=== PATIENT | female | born 2000 | race Caucasian/White ===

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

== ENCOUNTER 2018-04-21 19:41 | Emergency (ER) | payer MEDICAID, OTHER ==
[2018-04-21 19:47] VITALS: BP 100/65
[2018-04-21 20:22] LABS: HCG Qualitative,Urine Negative (Negative)
[2018-04-21 20:26] LABS: Bacteria,Urine 1+ /HPF (Negative); Bilirubin,Urine NEG (Negative); Blood,Urine NEG (Negative); Color,Urine Yellow (Yellow); Mucus,Urine 1+ /HPF; Protein,Urine <15 mg/dL mg/dL (Negative)
--- NOTE | 2018-04-21 20:40 | Emergency Department Report ---
ED Female HPI - General Chief complaint: Urogenital-Female Stated complaint: VAGINAL PAIN Time Seen by Provider: 04/21/18 20:14 Source: patient Mode of arrival: Ambulatory Limitations: No Limitations - History of Present Illness Initial comments: This is a 17-year-old female presents to ED complaining of vaginal age in and painful urination for the past 2 weeks. Patient states that whenever she urinates she simms. Patient states vaginal outer area stings as well. She denies fevers/pelvic pain/vaginal discharge or lesions. She denies nausea/vo miting/fever. Complaint: dysuria - Related Data Home Medications Medication Instructions Recorded Confirmed Last Taken Ethosuximide [Zarontin] 250 mg PO BID 03/18/14 03/18/14 Unknown Zonisamide 100 mg PO BID 03/18/14 03/18/14 Unknown Previous Rx's Medication Instructions Recorded Last Taken Type Ibuprofen [Motrin] 800 mg PO Q8HR #30 tablet 04/21/18 Unknown Rx Sulfamethoxazole/Trimethoprim 1 each PO BID #14 tablet 04/21/18 Unknown Rx [Bactrim DS TAB] Allergies Allergy/AdvReac Type Severity Reaction Status Date / Time folic acid Allergy Hives Verified 07/14/13 01:51 [From [place] Tab Chew] pediatric multivitamin Allergy Hives Verified 07/14/13 01:51 [From [place] Tab Chew] ED Review of Systems ROS: Stated complaint: VAGINAL PAIN Other details as noted in HPI Comment: All other systems reviewed and negative ED Past Medical Hx - Past Medical History Previous Medical History?: Yes Hx Seizures: Yes (epilepsy) Hx Psychiatric Treatment: No - Surgical History Past Surgical History?: Yes Additional Surgical History: VNS Therapy-02/02/2009 - Social History Smoking Status: Never Smoker Substance Use Type: None - Medications Home Medications: Home Medications Medication Instructions Recorded Confirmed Last Taken Type Ethosuximide [Zarontin] 250 mg PO BID 03/18/14 03/18/14 Unknown History Zonisamide 100 mg PO BID 03/18/14 03/18/14 Unknown History Ibuprofen [Motrin] 800 mg PO Q8HR #30 tablet 04/21/18 Unknown Rx Sulfamethoxazole/Trimethoprim 1 each PO BID #14 tablet 04/21/18 Unknown Rx [Bactrim DS TAB] ED Physical Exam - General Limitations: No Limitations General appearance: alert, in no apparent distress - Head Head exam: Present: atraumatic, normocephalic - Eye Eye exam: Present: normal appearance - ENT ENT exam: Present: mucous membranes moist - Neck Neck exam: Present: normal inspection - Respiratory Respiratory exam: Present: normal lung sounds bilaterally. Absent: respiratory distress - Cardiovascular Cardiovascular Exam: Present: regular rate, normal rhythm. Absent: systolic murmur, diastolic murmur, rubs, gallop - GI/Abdominal GI/Abdominal exam: Present: soft, normal bowel sounds. Absent: distended, tenderness, guarding - External exam: Present: normal external exam Speculum exam: Present: vaginal discharge, cervical discharge, other (follow-up with her) Bi-manual exam: Present: cervical motion tendernes, adnexal tenderness - Extremities Exam Extremities exam: Present: normal inspection, full ROM - Back Exam Back exam: Present: normal inspection - Neurological Exam Neurological exam: Present: alert, oriented X3 - Psychiatric Psychiatric exam: Present: normal affect, normal mood - Skin Skin exam: Present: warm, dry, intact, normal color. Absent: rash ED Course Vital Signs 04/21/18 04/21/18 19:46 19:47 Temperature 97.9 F 98.6 F Pulse Rate 84 83 Respiratory 16 18 Rate Blood Pressure 100/65 100/65 O2 Sat by Pulse 98 98 Oximetry ED Medical Decision Making - Medical Decision Making 17-year-old female presents with STD, vaginitis. ED course: Urinalysis and gonorrhea and Chlamydia cultures obtained. Urinalysis positive for leukorrhea Lip prep positive for Trich Patient received 250 mg of Rocephin, azithromycin 1 g, Flagyl 2 g. Discussed with patient STD due to exposure. Discussed with patient findings and treatment Discussed prophylaxis treatment patient is to abstain from sex 7-10 days as treatment. Discussed patient partner knowledge and treatment. Discussed the follow-up with the health department for further STD testing. Patient's alert and oriented times 3. Vital signs are normal patient is in no acute discharge. Patient will be discharged home with instructions. Critical care attestation.: If time is entered above; I have spent that time in minutes in the direct care of this critically ill patient, excluding procedure time. ED Disposition Clinical Impression: UTI (urinary tract infection), Vaginitis, Trichomonal infection, STD (sexually transmitted disease) Disposition: DC-01 TO HOME OR SELFCARE Is pt being admited?: No Does the pt Need Aspirin: No Condition: Stable Instructions: Bacterial Vaginosis (ED), Sexually Transmitted Diseases (ED), Safe Sex (ED), Trichomoniasis (ED), Urinary Tract Infection in Women (ED), Vaginitis (ED) Additional Instructions: Make sure to follow up with the primary care physician as discussed. Take all your medications as you've been prescribed. If you have any worsening symptoms or develop new symptoms please return to ED immediately. Prescriptions: Ibuprofen [Motrin] 800 mg PO Q8HR #30 tablet Sulfamethoxazole/Trimethoprim [Bactrim DS TAB] 1 each PO BID #14 tablet Referrals: OSIRIS BUCKLEY MD [Primary Care Provider] - 3-5 Days [facility] - 3-5 Days Forms: Accompanied Note, Work/School Release Form(ED) Time of Disposition: 22:00
[2018-04-21] MEDS ORDERED: ROCEPHIN IM ONE (21:57)
[2018-04-21] MEDS ORDERED: ZITHROMAX PO ONE (21:57)
[2018-04-21] MEDS ORDERED: XYLOCAINE 1% MPF 5 mL INFILTRATI ONE (21:57)
[2018-04-21] MEDS ORDERED: FLAGYL PO ONE (21:57)
== END 2018-04-21 22:53 | disposition home or self-care (01) ==
LOC: ED 19:41
DX: N76.0 Acute vaginitis (principal); N39.0 Urinary tract infection, site not specified; G40.909 Epilepsy, unspecified, not intractable, without status epilepticus; A59.9 Trichomoniasis, unspecified; Z88.8 Allergy status to other drugs, medicaments and biological substances
CPT/HCPCS: 81001; 81025; 87210; 87591; 96372; 99284; J0696

== ENCOUNTER 2018-10-26 02:39 | Emergency (ER) | payer MEDICAID ==
[2018-10-26 02:43] VITALS: BP 130/72
[2018-10-26 03:43] LABS: Bilirubin,Urine NEG (Negative); Blood,Urine NEG (Negative); Color,Urine Amber (Yellow); Mucus,Urine 3+ /HPF
[2018-10-26 03:47] LABS: HCG Qualitative,Urine Positive (Negative); WBC,Urine < 1.0 /HPF (0.0-6.0)
[2018-10-26] MEDS ORDERED: TYLENOL PO ONE ×2 (04:49→05:34)
[2018-10-26] MEDS ORDERED: TYLENOL ONE (05:33)
--- NOTE | 2018-10-26 05:43 | Ultrasound Report ---
ULTRASOUND OBSTETRIC INDICATION: Abdominal pain. Clinical age of 9 weeks. TECHNIQUE: Transabdominal and Transvaginal. COMPARISON: None available. FINDINGS: GESTATIONAL SAC: Well-defined oval shape and intrauterine in location. YOLK SAC: No significant abnormality. EMBRYO/FETUS: No significant abnormality. - [place]-Rump Length = 34.8 mm = 10 weeks, 3 day(s). - Heart Rate = 165 beats per minute. ADNEXA: No significant abnormality. FREE FLUID: None. ADDITIONAL FINDINGS: None. IMPRESSION: 1. Single, living intrauterine with estimated sonographic age of 10 weeks, 3 day(s). 2. No acute sonographic abnormality of the pelvis. Signer Name: Joby Orr MD Signed: 10/26/2018 5:39 AM Workstation Name: [id number]
--- NOTE | 2018-10-26 05:43 | Ultrasound Report ---
ULTRASOUND OBSTETRIC INDICATION: Abdominal pain. Clinical age of 9 weeks. TECHNIQUE: Transabdominal and Transvaginal. COMPARISON: None available. FINDINGS: GESTATIONAL SAC: Well-defined oval shape and intrauterine in location. YOLK SAC: No significant abnormality. EMBRYO/FETUS: No significant abnormality. - [place]-Rump Length = 34.8 mm = 10 weeks, 3 day(s). - Heart Rate = 165 beats per minute. ADNEXA: No significant abnormality. FREE FLUID: None. ADDITIONAL FINDINGS: None. IMPRESSION: 1. Single, living intrauterine with estimated sonographic age of 10 weeks, 3 day(s). 2. No acute sonographic abnormality of the pelvis. Signer Name: Joby Orr MD Signed: 10/26/2018 5:39 AM Workstation Name: [id number]
--- NOTE | 2018-10-26 06:04 | Emergency Department Report ---
ED Abdominal Pain HPI - General Chief Complaint: Back Pain/Injury Stated Complaint: BACK PAIN Time Seen by Provider: 10/26/18 04:28 Source: patient Mode of arrival: Ambulatory Limitations: No Limitations - History of Present Illness Initial Comments: pt is s a 18 y/o aaf G 2, P1 , who presents for left lower abd pain x 1 month, symptoms include aching and back pain pt denies bleeding at this time. primary concern now is back s/p fall 1 week ago MD Complaint: abdominal pain Onset/Timin -: week(s) Location: diffuse Radiation: LLQ Migration to: LLQ Severity: moderate Severity scale (0 -10): 7 Quality: cramping, aching Consistency: constant Improves With: nothing Worsens With: nothing, eating - Related Data LMP Date: 08/24/18 LMP (females 10-50): 2 months Home Medications Medication Instructions Recorded Confirmed Last Taken Ethosuximide [Zarontin] 250 mg PO BID 03/18/14 03/18/14 Unknown Zonisamide 100 mg PO BID 03/18/14 03/18/14 Unknown Previous Rx's Medication Instructions Recorded Last Taken Type Ibuprofen [Motrin] 800 mg PO Q8HR #30 tablet 04/21/18 Unknown Rx Sulfamethoxazole/Trimethoprim 1 each PO BID #14 tablet 04/21/18 Unknown Rx [Bactrim DS TAB] Acetaminophen [Acetaminophen TAB] 650 mg PO Q6HR PRN #60 tablet 10/26/18 Unknown Rx Allergies Allergy/AdvReac Type Severity Reaction Status Date / Time folic acid Allergy Hives Verified 07/14/13 01:51 [From [place] Tab Chew] pediatric multivitamin Allergy Hives Verified 07/14/13 01:51 [id number] [From [place] Tab Chew] ED Review of Systems ROS: Stated complaint: BACK PAIN Other details as noted in HPI Constitutional: denies: chills, fever Eyes: denies: eye pain, eye discharge, vision change ENT: denies: ear pain, throat pain Respiratory: denies: cough, shortness of breath, wheezing Cardiovascular: denies: chest pain, palpitations Endocrine: no symptoms reported Gastrointestinal: denies: abdominal pain, nausea, diarrhea Genitourinary: denies: urgency, dysuria, discharge Musculoskeletal: back pain. denies: joint swelling Skin: denies: rash, lesions Neurological: denies: headache, weakness, paresthesias Psychiatric: denies: anxiety, depression Hematological/Lymphatic: denies: easy bleeding, easy bruising ED Past Medical Hx - Past Medical History Previous Medical History?: Yes Hx Seizures: Yes (epilepsy) Hx Psychiatric Treatment: No - Surgical History Past Surgical History?: Yes Additional Surgical History: VNS Therapy-02/02/2009 - Social History Smoking Status: Current Every Day Smoker Substance Use Type: None - Medications Home Medications: Home Medications Medication Instructions Recorded Confirmed Last Taken Type Ethosuximide [Zarontin] 250 mg PO BID 03/18/14 03/18/14 Unknown History Zonisamide 100 mg PO BID 03/18/14 03/18/14 Unknown History Ibuprofen [Motrin] 800 mg PO Q8HR #30 tablet 04/21/18 Unknown Rx Sulfamethoxazole/Trimethoprim 1 each PO BID #14 tablet 04/21/18 Unknown Rx [Bactrim DS TAB] Acetaminophen [Acetaminophen TAB] 650 mg PO Q6HR PRN #60 tablet 10/26/18 Unk nown Rx ED Physical Exam - General Limitations: No Limitations (is) General appearance: alert, in no apparent distress - Head Head exam: Present: atraumatic, normocephalic - Eye Eye exam: Present: normal appearance, PERRL, EOMI Pupils: Present: normal accommodation - ENT ENT exam: Present: normal exam, mucous membranes moist - Neck Neck exam: Present: normal inspection, full ROM. Absent: tenderness, lymphadenopathy - Respiratory Respiratory exam: Present: normal lung sounds bilaterally (orally of E Oscar). Absent: respiratory distress - Cardiovascular Cardiovascular Exam: Present: regular rate, normal rhythm, normal heart sounds. Absent: systolic murmur, diastolic murmur, rubs, gallop - GI/Abdominal GI/Abdominal exam: Present: soft, normal bowel sounds. Absent: distended, tenderness, bruit, hernia - Rectal Rectal exam: Present: deferred (review of) - Extremities Exam Extremities exam: Present: normal inspection, full ROM, normal capillary refill. Absent: tenderness - Back Exam Back exam: Present: normal inspection, full ROM (he then), tenderness (no posterior vertebral point tenderness ), muscle spasm, paraspinal tenderness. Absent: CVA tenderness (R), CVA tenderness (L) (history of), vertebral tenderness, rash noted - Expanded Back Exam Expanded Back exam: Absent: saddle anesthesia Back exam: Positive Straight Leg Raise: Left, Negative Straight Leg Raising: Right - Neurological Exam Neurological exam: Present: alert, oriented X3, CN II-XII intact, normal gait, reflexes normal. Absent: motor sensory deficit - Psychiatric Psychiatric exam: Present: normal affect, normal mood - Skin Skin exam: Present: warm, dry, intact, normal color. Absent: rash ED Course Vital Signs 10/26/18 10/26/18 02:42 05:35 Temperature 98.3 F Pulse Rate 123 H Respiratory 18 16 Rate Blood Pressure 130/72 O2 Sat by Pulse 97 Oximetry ED Medical Decision Making - Lab Data Labs 10/26/18 10/26/18 02:50 05:23 HCG, Quant [id number] H Urine Color Freya Urine Turbidity Slightly-cloudy Urine pH 5.0 Ur Specific [place] 1.026 Urine Protein 30 mg/dl Urine Glucose (UA) Neg Urine Ketones 80 Urine Blood Neg Urine Nitrite Neg Urine Bilirubin Neg Urine Urobilinogen 2.0 Ur Leukocyte Esterase Neg Urine WBC (Auto) < 1.0 Urine RBC (Auto) 2.0 U Epithel Cells (Auto) 12.0 Urine Mucus 3+ Urine HCG, Qual Positive A - Radiology Data Radiology results: report reviewed, image reviewed Ordering Physician: KARYNA CARRILLO NP Date of Service: 10/26/18 Procedure(s): US OB transvaginal Accession Number(s): [id number] cc: KARYNA CARRILLO NP ULTRASOUND OBSTETRIC INDICATION: Abdominal pain. Clinical age of 9 weeks. TECHNIQUE: Transabdominal and Transvaginal. COMPARISON: None available. FINDINGS: GESTATIONAL SAC: Well-defined oval shape and intrauterine in location. YOLK SAC: No significant abnormality. EMBRYO/FETUS: No significant abnormality. - [place]-Rump Length = 34.8 mm = 10 weeks, 3 day(s). - Heart Rate = 165 beats per minute. ADNEXA: No significant abnormality. FREE FLUID: None. ADDITIONAL FINDINGS: None. IMPRESSION: 1. Single, living intrauterine with estimated sonographic age of 10 weeks, 3 day(s). 2. No acute sonographic abnormality of the pelvis. Signer Name: Joby Orr MD Signed: 10/26/2018 5:39 AM Workstation Name: [email or web address] Transcribed By: [place] Dictated By: Joby Orr MD Electronically Authenticated By: Joby Orr MD Signed Date/Time: 10/26/18538 DD/ 6 TD/TT: - Medical Decision Making hc labs: normal, US: Single IUP FHR 165, there is no vaginal bleeding no abnormal discharge no fever or chills , plan tylenol prn pain tiger balm follow up with OBGYN in 1-2 days , pt verbalized agreement and understanding of same, pt dc'd to home in stable condition at this time. a: Critical care attestation.: If time is entered above; I have spent that time in minutes in the direct care of this critically ill patient, excluding procedure time. ED Disposition Clinical Impression: Abdominal pain during intrauterine Back pain Qualifiers: Back pain location: low back pain Chronicity: acute Back pain laterality: left Sciatica presence: without sciatica Qualified Code(s): M54.5 - Low back pain Disposition: DC-01 TO HOME OR SELFCARE Is pt being admited?: No Does the pt Need Aspirin: No Condition: Stable Instructions: Abdominal Pain in (ED), Low Back Strain (ED) Prescriptions: Acetaminophen [Acetaminophen TAB] 650 mg PO Q6HR PRN #60 tablet PRN Reason: Pain Referrals: RUBY SCHAFFER MD [Primary Care Provider] - 3-5 Days Forms: Work/School Release Form(ED) Time of Disposition: 07:20
== END 2018-10-26 07:42 | disposition home or self-care (01) ==
LOC: ED 02:39
DX: O26.891 Other specified pregnancy related conditions, first trimester (principal); R10.30 Lower abdominal pain, unspecified; M54.9 Dorsalgia, unspecified; O99.351 Diseases of the nervous system complicating pregnancy, first trimester; G40.909 Epilepsy, unspecified, not intractable, without status epilepticus; O99.331 Smoking (tobacco) complicating pregnancy, first trimester; F17.200 Nicotine dependence, unspecified, uncomplicated; Z98.890 Other specified postprocedural states; Z88.8 Allergy status to other drugs, medicaments and biological substances; Z3A.10 10 weeks gestation of pregnancy
CPT/HCPCS: 36415; 76801; 76817; 81001; 81025; 84702; 86900; 86901; 99284

== ENCOUNTER 2019-04-04 23:14 | Outpatient (CLI) | payer OTHER ==
[2019-04-04] MEDS ORDERED: LACTATED RINGERS 1,000 ML IV ONE (23:47)
[2019-04-05 00:49] VITALS: BP 100/55
[2019-04-05 00:58] LABS: Bilirubin,Urine NEG (Negative); Blood,Urine NEG (Negative); Color,Urine Yellow (Yellow); Mucus,Urine FEW /HPF; Protein,Urine <15 mg/dL mg/dL (Negative)
[2019-04-05 01:03] LABS: Amphetamine Screen,Urine PRESUMPTIVE NEGATIVE; Benzodiazepines Screen,Urine PRESUMPTIVE NEGATIVE; Cannabinoid Screen,Urine PRESUMPTIVE NEGATIVE; Cocaine Screen,Urine PRESUMPTIVE NEGATIVE; Methadone Screen,Urine PRESUMPTIVE NEGATIVE; Opiate Screen,Urine PRESUMPTIVE NEGATIVE
== END 2019-04-05 01:15 | disposition home or self-care (01) ==
LOC: TRG 23:14
PROVIDERS: ATTEND Obstetrics & Gynecology
DX: O26.893 Other specified pregnancy related conditions, third trimester (principal); R10.9 Unspecified abdominal pain; M54.9 Dorsalgia, unspecified; O99.353 Diseases of the nervous system complicating pregnancy, third trimester; R56.9 Unspecified convulsions; Z3A.31 31 weeks gestation of pregnancy
CPT/HCPCS: 59025; 80307; 81001; 87086; 96360; J7120

== ENCOUNTER 2021-10-03 20:00 | Emergency (ER) | payer MEDICAID ==
--- NOTE | 2021-10-03 21:14 | Emergency Department Report ---
ED General Adult HPI - General Chief complaint: Seizure Stated complaint: SEIZURE Time Seen by Provider: 10/03/21 20:15 Source: patient, EMS Mode of arrival: Stretcher Limitations: No Limitations - History of Present Illness Initial comments: patient presents with complaints of a tonic clonic seizure. Denies biting her tongue, bowel or urinary incontinence. Denies any dizziness, numbness, weakness, ROSE, CP, SOB, palpitations before or after the episode. Also denies any vomiting, diarrhea, hematochezia, bloody or black tarry stools, vaginal bleeding. Has a hx of seizures and is supposed to be on zonisamide. - Related Data Home Medications Medication Instructions Recorded Confirmed Last Taken Ethosuximide [Zarontin] 250 mg PO BID 03/18/14 05/13/19 Unknown Zonisamide 100 mg PO BID 03/18/14 05/13/19 Unknown Previous Rx's Medication Instructions Recorded Last Taken Type Ibuprofen [Motrin] 800 mg PO Q8HR #30 tablet 04/21/18 Unknown Rx Sulfamethoxazole/Trimethoprim 1 each PO BID #14 tablet 04/21/18 Unknown Rx [Bactrim DS TAB] Acetaminophen [Acetaminophen TAB] 650 mg PO Q6HR PRN #60 tablet 10/26/18 Unknown Rx Ferrous Sulfate [Ferrous Sulfate 324 mg PO BID #60 tablet.dr 05/13/19 Unknown Rx 324 MG] Ibuprofen [Motrin] 600 mg PO Q6H PRN #60 tablet 05/13/19 Unknown Rx HYDROcodone/APAP 5-325 [[place] 1 each PO Q6HR PRN #20 tablet 05/15/19 Unknown Rx 5/325] Zonisamide [Zonegran] 25 mg PO BID #90 capsule 10/08/19 Unknown Rx Cefdinir 1 cap PO BID 7 Days #14 cap 10/03/21 Unknown Rx Zonisamide 50 mg PO BID #60 cap 10/03/21 Unknown Rx Allergies Allergy/AdvReac Type Severity Reaction Status Date / Time folic acid Allergy Hives Verified 10/03/21 20:03 [From [place] Tab Chew] pediatric multivitamin Allergy Hives Verified 10/03/21 20:03 [id number] [From [place] Tab Chew] ED Review of Systems ROS: Stated complaint: SEIZURE Other details as noted in HPI Comment: All other systems reviewed and negative Constitutional: chills, fever, other (diffuse body aches) Neurological: headache, other (denies neck stiffness) ED Past Medical Hx - Past Medical History Hx Hypertension: No Hx Diabetes: No Hx Deep Vein Thrombosis: No Hx Renal Disease: No Hx Sickle Cell Disease: No Hx Seizures: Yes (seizures- not taking meds) Hx Psychiatric Treatment: No Hx Asthma: No Hx HIV: No - Surgical History Additional Surgical History: VNS Therapy-02/02/2009 - Social History Smoking Status: Never Smoker Substance Use Type: None - Medications Home Medications: Home Medications Medication Instructions Recorded Confirmed Last Taken Type Ethosuximide [Zarontin] 250 mg PO BID 03/18/14 05/13/19 Unknown History Zonisamide 100 mg PO BID 03/18/14 05/13/19 Unknown History Ibuprofen [Motrin] 800 mg PO Q8HR #30 tablet 04/21/18 05/13/19 Unknown Rx Sulfamethoxazole/Trimethoprim 1 each PO BID #14 tablet 04/21/18 05/13/19 Unknown Rx [Bactrim DS TAB] Acetaminophen [Acetaminophen TAB] 650 mg PO Q6HR PRN #60 tablet 10/26/18 05/13/19 Unknown Rx Ferrous Sulfate [Ferrous Sulfate 324 mg PO BID #60 tablet.dr 05/13/19 Unknown Rx 324 MG] Ibuprofen [Motrin] 600 mg PO Q6H PRN #60 tablet 05/13/19 Unknown Rx HYDROcodone/APAP 5-325 [[place] 1 each PO Q6HR PRN #20 tablet 05/15/19 Unknown Rx 5/325] Zonisamide [Zonegran] 25 mg PO BID #90 capsule 10/08/19 Unknown Rx Cefdinir 1 cap PO BID 7 Days #14 cap 10/03/21 Unknown Rx Zonisamide 50 mg PO BID #60 cap 10/03/21 Unknown Rx ED Physical Exam - General Limitations: No Limitations General appearance: alert, in no apparent distress - Head Head exam: Present: atraumatic, normocephalic - Eye Eye exam: Present: PERRL, EOMI - ENT ENT exam: Present: mucous membranes moist, other (airway patent) - Neck Neck exam: Present: other (supple; no JVD) - Respiratory Respiratory exam: Present: other (good air entry, nml I:E, CTAB,) - Cardiovascular Cardiovascular Exam: Present: regular rate. Absent: rubs, gallop - GI/Abdominal GI/Abdominal exam: Present: soft, normal bowel sounds. Absent: distended, tenderness, guarding, rebound - Extremities Exam Extremities exam: Present: full ROM. Absent: tenderness - Back Exam Back exam: Present: full ROM. Absent: tenderness - Neurological Exam Neurological exam: Present: alert, oriented X3, CN II-XII intact, other (neg Kernig's and Brudzinski's signs). Absent: motor sensory deficit - Skin Skin exam: Present: warm. Absent: rash ED Course Vital Signs 10/03/21 10/03/21 10/03/21 20:01 21:05 21:15 Temperature Pulse Rate 80 132 H 130 H Respiratory 17 13 Rate Blood Pressure 101/47 Blood Pressure 122/80 [Left] O2 Sat by Pulse 98 83 L 96 Oximetry 10/03/21 10/03/21 10/03/21 21:19 21:30 21:46 Temperature 102 F H Pulse Rate 127 H 131 H 130 H Respiratory 16 20 17 Rate Blood Pressure 101/47 101/47 Blood Pressure 104/76 [Left] O2 Sat by Pulse 96 95 96 Oximetry 10/03/21 10/03/21 10/03/21 22:00 22:16 22:30 Temperature Pulse Rate 128 H 121 H 122 H Respiratory 20 29 H 22 Rate Blood Pressure 101/47 101/47 101/47 Blood Pressure [Left] O2 Sat by Pulse 96 94 96 Oximetry 10/03/21 22:46 Temperature Pulse Rate 123 H Respiratory 15 Rate Blood Pressure 105/46 Blood Pressure [Left] O2 Sat by Pulse 90 Oximetry ED Medical Decision Making - Lab Data Result diagrams: 10/03/21 20:41 10/03/21 20:41 Laboratory Tests 10/03/21 10/03/21 10/03/21 20:41 20:41 20:41 WBC 4.2 L RBC 4.44 Hgb 12.6 Hct 36.7 MCV 83 MCH 28 MCHC 34 RDW 14.8 Plt Count 205 Lymph % (Auto) 6.2 L [place] % (Auto) 7.5 H Eos % (Auto) 1.0 Baso % (Auto) 0.7 Lymph # (Auto) 0.3 L [place] # (Auto) 0.3 Eos # (Auto) 0.0 Baso # (Auto) 0.0 Seg Neutrophils % 84.6 H Seg Neutrophils # 3.5 Sodium 136 L Potassium 3.9 Chloride 101.4 Carbon Dioxide 23 Anion Gap 16 BUN 11 Creatinine 0.6 Estimated GFR > 60 BUN/Creatinine Ratio 18 Glucose 97 Calcium 9.6 Total Bilirubin 0.50 AST 28 ALT 21 Alkaline Phosphatase 93 Total Creatine Kinase Troponin T < 0.010 Total Protein 8.5 H Albumin 4.7 Albumin/Globulin Ratio 1.2 HCG, Qual Negative Urine Color Urine Turbidity Urine pH Ur Specific [employer] Urine Protein Urine Glucose (UA) Urine Ketones Urine Blood Urine Nitrite Urine Bilirubin Urine Urobilinogen Ur Leukocyte Esterase Urine WBC (Auto) Urine RBC (Auto) U Epithel Cells (Auto) Urine Mucus Urine HCG, Qual Urine Opiates Screen Urine Methadone Screen Ur Barbiturates Screen Ur Phencyclidine Scrn Ur Amphetamines Screen U Benzodiazepines Scrn Urine Cocaine Screen U Marijuana (THC) Screen 10/03/21 10/03/21 10/03/21 20:41 23:17 23:17 WBC RBC Hgb Hct MCV MCH MCHC RDW Plt Count Lymph % (Auto) [place] % (Auto) Eos % (Auto) Baso % (Auto) Lymph # (Auto) [place] # (Auto) Eos # (Auto) Baso # (Auto) Seg Neutrophils % Seg Neutrophils # Sodium Potassium Chloride Carbon Dioxide Anion Gap BUN Creatinine Estimated GFR BUN/Creatinine Ratio Glucose Calcium Total Bilirubin AST ALT Alkaline Phosphatase Total Creatine Kinase 63 Troponin T Total Protein Albumin Albumin/Globulin Ratio HCG, Qual Urine Color Yellow Urine Turbidity Clear Urine pH 5.0 Ur Specific [employer] 1.019 Urine Protein <15 mg/dl Urine Glucose (UA) Neg Urine Ketones Neg Urine Blood Neg Urine Nitrite Neg Urine Bilirubin Neg Urine Urobilinogen 2.0 Ur Leukocyte Esterase Neg Urine WBC (Auto) 8.0 H Urine RBC (Auto) 4.0 U Epithel Cells (Auto) 3.0 Urine Mucus Few Urine HCG, Qual Negative Urine Opiates Screen Presumptive negative Urine Methadone Screen Presumptive negative Ur Barbiturates Screen Presumptive negative Ur Phencyclidine Scrn Presumptive negative Ur Amphetamines Screen Presumptive negative U Benzodiazepines Scrn Presumptive negative Urine Cocaine Screen Presumptive negative U Marijuana (THC) Screen Presumptive positive EK, SR, nml FL, narrow QRS, no significant St changes in contiguous leads CXR: no acute cardiopulmonary process CT head: no acute intracranial process - Medical Decision Making Diff dz: - Likely 2/2 breakthrough seizure due to non compliance and UTI. ICH, cerebral edema, intracranial space occupying lesion, pneumonia, electrolyte disorder ruled out. Received NS 1L bolus x 1, keppra 500 mg Iv x 1, ceftriaxone 1g IV x 1, acetaminophen 650 mg PO x 1. Defeversced. HR 84. BPsd stable. Patient does not want to be admitted. Critical care attestation.: If time is entered above; I have spent that time in minutes in the direct care of this critically ill patient, excluding procedure time. ED Disposition Clinical Impression: Seizure, UTI (urinary tract infection), Non compliance w medication regimen Disposition: HOME / SELF CARE / HOMELESS Is pt being admited?: No Does the pt Need Aspirin: No Condition: Stable Instructions: Urinary Tract Infection, Adult, Seizure, Adult, [id number] Additional Instructions: Follow up with your regular doctor within 2 - 4 days. Return to the ER if your symptoms worsen or do not improve. Prescriptions: Cefdinir 1 cap PO BID 7 Days #14 cap Zonisamide 50 mg PO BID #60 cap Referrals: CHUY CARABALLO MD [Primary Care Provider] - 3-5 Days Time of Disposition: 23:40
[2021-10-03 21:20] LABS: Basophils % (Auto) 0.7 % (0.0-1.8); Hematocrit 36.7 % (30.3-42.9); Hemoglobin 12.6 gm/dl (10.1-14.3); Lymphocytes # (Auto) 0.3 K/mm3 (1.2-5.4); Lymphocytes % (Auto) 6.2 % (13.4-35.0); Mean Corpuscular HGB Conc 34 % (30-34); Mean Corpuscular Volume 83 fl (79-97); Monocytes # (Auto) 0.3 K/mm3 (0.0-0.8); Monocytes % (Auto) 7.5 % (0.0-7.3); Platelet Count 205 K/mm3 (140-440); Red Blood Count 4.44 M/mm3 (3.65-5.03); Red Cell Distribution Width 14.8 % (13.2-15.2)
[2021-10-03 21:35] LABS: Alanine Aminotransferase 21 units/L (7-56); Albumin 4.7 g/dL (3.9-5); Blood Urea Nitrogen 11 mg/dL (7-17); Calcium 9.6 mg/dL (8.4-10.2); Hemolysis Index 2
[2021-10-03 21:47] LABS: BUN/Creatinine Ratio 18
--- NOTE | 2021-10-03 22:03 | XRay Report ---
XR chest 1V ap INDICATION / CLINICAL INFORMATION: seizure. COMPARISON: None available. FINDINGS: SUPPORT DEVICES: Left-sided nerve stimulator. HEART /PULMONARY VASCULATURE: No significant abnormality. LUNGS / PLEURA: No significant pulmonary or pleural abnormality. No pneumothorax. ADDITIONAL FINDINGS: No significant additional findings. IMPRESSION: 1. No acute findings. Signer Name: Ronald Bains MD Signed: 10/03/2021 9:58 PM Workstation Name: [id number]
--- NOTE | 2021-10-03 22:06 | Cat Scan Report ---
CT HEAD WITHOUT CONTRAST INDICATION / CLINICAL INFORMATION: Seizure. TECHNIQUE: All CT scans at this location are performed using CT dose reduction for ALARA by means of automated e xposure control. COMPARISON: None available. FINDINGS: HEMORRHAGE: No evidence of intracranial hemorrhage or extra-axial fluid collection. EXTRA-AXIAL SPACES: Cortical sulci, sylvian fissures and basilar cisterns have an unremarkable appear ance. VENTRICULAR SYSTEM: The third and lateral ventricles are of normal size and configuration. CEREBRAL PARENCHYMA: No areas of abnormal brain parenchymal attenuation are identified. There is no i ndication of recent infarction. MIDLINE SHIFT OR HERNIATION: There is no mass effect. CEREBELLUM / BRAINSTEM: Brainstem and cerebellum have an unremarkable appearance. MIDLINE STRUCTURES:No abnormalities of the pituitary gland or pineal region are identified. INTRACRANIAL VESSELS:No abnormalities are identified on this noncontrast head CT. ORBITS: visualized portions of the orbits have an unremarkable appearance. SOFT TISSUES of HEAD: No significant abnormality. CALVARIUM: Evaluation of bone windows reveals no abnormalities. PARANASAL SINUSES / MASTOID AIR CELLS: Visualized portions of the paranasal sinuses are free from inf lammatory mucosal disease. Mastoid air cells are normally pneumatized. ADDITIONAL FINDINGS: None. IMPRESSION: 1. Normal head CT without contrast. Signer Name: Jason Hazel MD Signed: 10/03/2021 10:02 PM Workstation Name: [id number]
[2021-10-03] MEDS ORDERED: SODIUM CHLORIDE 0.9% 1000 ML 1,000 ML IV ONE (22:11)
[2021-10-03] MEDS ORDERED: cefTRIAXone/NS 1 GM/50 ML 1 GM/50 ML BAG IV ONE (22:24)
[2021-10-03] MEDS ORDERED: ACETAMINOPHEN 325 MG TAB PO ONE (22:24)
[2021-10-03] MEDS ORDERED: levETIRAcetam 500 MG in DEXTROSE 5% IN WATER 100 ML IV ONE (22:41)
[2021-10-03 23:32] LABS: Bilirubin,Urine NEG (Negative); Blood,Urine NEG (Negative); Color,Urine Yellow (Yellow); Protein,Urine <15 mg/dL mg/dL (Negative)
[2021-10-03 23:34] LABS: HCG Qualitative,Urine Negative (Negative); Mucus,Urine FEW /HPF
[2021-10-03 23:41] LABS: Amphetamine Screen,Urine PRESUMPTIVE NEGATIVE; Benzodiazepines Screen,Urine PRESUMPTIVE NEGATIVE; Cannabinoid Screen,Urine PRESUMPTIVE POSITIVE; Cocaine Screen,Urine PRESUMPTIVE NEGATIVE; Methadone Screen,Urine PRESUMPTIVE NEGATIVE; Opiate Screen,Urine PRESUMPTIVE NEGATIVE
[2021-10-04 01:10] VITALS: BP 97/51
--- NOTE | 2021-10-04 10:37 | Electrocardiograph Report ---
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
== END 2021-10-04 01:43 | disposition home or self-care (01) ==
LOC: ED 20:00
DX: R56.9 Unspecified convulsions (principal); N39.0 Urinary tract infection, site not specified; Z91.14 Patient's other noncompliance with medication regimen; Z98.890 Other specified postprocedural states; Z88.8 Allergy status to other drugs, medicaments and biological substances
CPT/HCPCS: 36415; 70450; 71045; 80053; 80177; 80307; 81001; 81025; 82140; 82550; 84484; 84703; 85025; 87040; 93005; 96365; 96375; 99285; J0696; J1953; J7030; J7060

== ENCOUNTER 2021-12-08 12:51 | Emergency (ER) | payer MEDICAID ==
[2021-12-08] MEDS ORDERED: traMADol 50 MG TAB PO ONE (14:19)
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
[2021-12-08 16:39] VITALS: BP 106/74
== END 2021-12-08 16:39 | disposition home or self-care (01) ==
LOC: ED 12:51
DX: S16.1XXA Strain of muscle, fascia and tendon at neck level, initial encounter (principal); S46.912A Strain of unspecified muscle, fascia and tendon at shoulder and upper arm level, left arm, initial encounter; Z88.8 Allergy status to other drugs, medicaments and biological substances; Z79.899 Other long term (current) drug therapy; V87.7XXA Person injured in collision between other specified motor vehicles (traffic), initial encounter; Y93.89 Activity, other specified; Y92.488 Other paved roadways as the place of occurrence of the external cause; Y99.8 Other external cause status
CPT/HCPCS: 72040; 99283

== ENCOUNTER 2021-12-30 16:28 | Emergency (ER) | payer MEDICAID, OTHER ==
--- NOTE | 2021-12-30 16:59 | Event Note ---
ED Screening Note Date of service: 12/30/21 Time: 16:56 ED Screening Note: This initial assessment/diagnostic orders/clinical plan/treatment(s) is/are subject to change based on patients health status, clinical progression and re- assessment by fellow clinical providers in the ED. Further treatment and workup at subsequent clinical providers discretion. Patient/guardian urged not to elope from the ED as their condition may be serious if not clinically assessed and managed. Patient is a who c/o bilateral back and pelvic pain for 4-5 days intermittently. No urine symptoms, vaginal discharge or irregular menses. No fever, chill, nausea, vomiting, diarrhea or constipation. Initial orders include: My Active Orders 12/30/21 16:53 Basic Metabolic Panel Stat Complete Blood Count Auto Diff Stat HCG Qualitative, Urine Stat Hepatic Panel Stat Lipase Stat Urinalysis Complete Stat
[2021-12-30 17:19] LABS: Basophils % (Auto) 0.7 % (0.0-1.8); Eosinophils # (Auto) 0.2 K/mm3 (0.0-0.4); Eosinophils % (Auto) 3.9 % (0.0-4.3); Hematocrit 37.8 % (30.3-42.9); Hemoglobin 13.2 gm/dl (10.1-14.3); Lymphocytes # (Auto) 1.1 K/mm3 (1.2-5.4); Lymphocytes % (Auto) 21.7 % (13.4-35.0); Mean Corpuscular HGB Conc 35 % (30-34); Mean Corpuscular Volume 82 fl (79-97); Monocytes # (Auto) 0.4 K/mm3 (0.0-0.8); Monocytes % (Auto) 6.8 % (0.0-7.3); Platelet Count 226 K/mm3 (140-440); Red Blood Count 4.64 M/mm3 (3.65-5.03); Red Cell Distribution Width 14.5 % (13.2-15.2)
[2021-12-30 17:22] LABS: Bilirubin,Urine NEG (Negative); Blood,Urine NEG (Negative); Color,Urine Yellow (Yellow); Protein,Urine <15 mg/dL mg/dL (Negative); Urobilinogen,Urine < 2 mg/dL (<2.0)
[2021-12-30 17:23] LABS: Mucus,Urine FEW /HPF; WBC,Urine < 1.0 /HPF (0.0-6.0)
[2021-12-30 17:42] LABS: Alanine Aminotransferase 25 units/L (7-56); Albumin 4.8 g/dL (3.9-5); BUN/Creatinine Ratio 26; Bilirubin,Direct < 0.2 mg/dL (0-0.2); Blood Urea Nitrogen 13 mg/dL (7-17); Calcium 9.3 mg/dL (8.4-10.2); Hemolysis Index 13
[2021-12-30 18:07] LABS: HCG Qualitative,Urine Negative (Negative)
[2021-12-30] MEDS ORDERED: KETOROLAC 30 MG/1 ML INJ IM ONE (19:35)
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
--- NOTE | 2021-12-30 20:18 | XRay Report ---
LUMBAR SPINE 3 VIEWS INDICATION: Low back pain. COMPARISON: No relevant prior imaging study available. FINDINGS: VERTEBRAE: No acute fracture. Normal alignment. DISC SPACES: No significant abnormality. FACET JOINTS: No significant abnormality. SOFT TISSUES: No significant abnormality. ADDITIONAL FINDINGS: No additional significant findings. IMPRESSION: 1. No acute findings. Signer Name: Joby Orr MD Signed: 12/30/2021 8:14 PM Workstation Name: [id number]
[2021-12-30 22:50] VITALS: BP 111/75
== END 2021-12-30 22:50 | disposition home or self-care (01) ==
LOC: ED 16:28
DX: M54.50 Low back pain, unspecified (principal); R56.9 Unspecified convulsions; Z91.09 Other allergy status, other than to drugs and biological substances
CPT/HCPCS: 36415; 72100; 80048; 80076; 81001; 81025; 83690; 85025; 99284